=== PATIENT | male | born 1945 | race Hispanic/Latino ===

== ENCOUNTER 2018-07-31 19:11 | Emergency (ER) | payer MEDICARE ==
[2018-07-31] MEDS ORDERED: TORADOL IM ONE (23:18)
--- NOTE | 2018-07-31 23:34 | Emergency Department Report ---
ED Extremity Problem HPI - General Chief complaint: Extremity Injury, Upper Stated complaint: LEFT SHOULDER PAIN Time Seen by Provider: 07/31/18 23:17 Source: patient Mode of arrival: Ambulatory Limitations: No Limitations - History of Present Illness Initial comments: 73-year-old male from [place] comes in for left shoulder strain is ongoing. Patient reports that he had a spontaneous rupture of the biceps. Patient denies any recent trauma to the left arm. Patient reports pain is a 10 out of 10 but has not taken anything for pain. Patient reports he currently takes prednisone Batista catheter and Bactrim sounds like patient may have had neutropenic man on prednisone so his doctor placed him on Bactrim. Patient has no allergies to medications. Past medical history of COPD still smoking cigarettes. A large spleen, anemia with a history of blood transfusions. MD Complaint: extremity pain Location: left History of Same: Yes Severity scale (0 -10): 10 Quality: constant Consistency: constant Worsens with: palpation, other Associated Symptoms: denies other symptoms - Related Data Previous Rx's Medication Instructions Recorded Last Taken Type Naproxen [Naprosyn] 500 mg PO BID #14 tablet 08/01/18 Unknown Rx Allergies Allergy/AdvReac Type Severity Reaction Status Date / Time No Known Allergies Allergy Unverified 07/31/18 19:27 ED Review of Systems ROS: Stated complaint: LEFT SHOULDER PAIN Other details as noted in HPI Comment: All other systems reviewed and negative Musculoskeletal: arthralgia (left bicep) ED Past Medical Hx - Past Medical History Hx COPD: Yes Additional medical history: enlarged spleen, anemia with infusions - Surgical History Additional Surgical History: back, Ventricle hernia x4,RIght knee,polyps in throat, left CTS - Social History Smoking Status: Current Every Day Smoker Substance Use Type: None - Medications Home Medications: Home Medications Medication Instructions Recorded Confirmed Last Taken Type Naproxen [Naprosyn] 500 mg PO BID #14 tablet 08/01/18 Unknown Rx ED Physical Exam - General Limitations: No Limitations General appearance: alert, in no apparent distress - Head Head exam: Present: atraumatic, normocephalic - ENT ENT exam: Present: mucous membranes moist - Respiratory Respiratory exam: Present: wheezes - Cardiovascular Cardiovascular Exam: Present: regular rate, normal rhythm. Absent: systolic murmur, diastolic murmur, rubs, gallop - Expanded Upper Extremity Exam Left Shoulder Exam: Absent: full ROM, swelling, abrasion Upper Arm exam: Present: tenderness Elbow exam: Present: normal inspection, full ROM. Absent: tenderness Forearm Wrist exam: Present: normal inspection, full ROM, abrasion, ecchymosis Hand Wrist exam: Present: normal inspection, full ROM - Neurological Exam Neurological exam: Present: alert, oriented X3 - Psychiatric Psychiatric exam: Present: normal affect, normal mood ED Course Vital Signs 07/31/18 07/31/18 07/31/18 19:16 19:20 23:41 Temperature 98.2 F 98.2 F Pulse Rate 82 79 Respiratory 18 18 20 Rate Blood Pressure 167/82 167/83 O2 Sat by Pulse 94 95 Oximetry 08/01/18 00:11 Temperature Pulse Rate Respiratory 20 Rate Blood Pressure O2 Sat by Pulse Oximetry Critical care attestation.: If time is entered above; I have spent that time in minutes in the direct care of this critically ill patient, excluding procedure time. ED Disposition Clinical Impression: Chronic pain of left upper extremity Disposition: DC-01 TO HOME OR SELFCARE Is pt being admited?: No Does the pt Need Aspirin: No Condition: Stable Instructions: Arthralgia (ED) Additional Instructions: Please take pain medication as needed. Follow up with her primary care provider if symptoms persist or gets worse. Uses of arm is based on your personal limitations when it comes to pain and discomfort. Prescriptions: Naproxen [Naprosyn] 500 mg PO BID #14 tablet Referrals: your,provider [Other] - 3-5 Days Forms: Work/School Release Form(ED)
[2018-08-01 01:55] VITALS: BP 150/72
== END 2018-08-01 01:55 | disposition home or self-care (01) ==
LOC: ED 19:11
DX: M25.512 Pain in left shoulder (principal); J44.9 Chronic obstructive pulmonary disease, unspecified; F17.210 Nicotine dependence, cigarettes, uncomplicated; Z86.2 Personal history of diseases of the blood and blood-forming organs and certain disorders involving the immune mechanism
CPT/HCPCS: 96372; 99282; J1885